=== PATIENT | female | born 1985 | race American Indian/Alaskan Native ===

== ENCOUNTER 2017-09-12 09:38 | Emergency (ER) | payer SELFPAY ==
[2017-09-12 10:46] LABS: Basophils % (Auto) 0.4 % (0.0-1.8); Eosinophils # (Auto) 0.5 K/mm3 (0.0-0.4); Eosinophils % (Auto) 5.1 % (0.0-4.3); Hematocrit 37.4 % (30.3-42.9); Lymphocytes # (Auto) 2.5 K/mm3 (1.2-5.4); Lymphocytes % (Auto) 24.2 % (13.4-35.0); Mean Corpuscular HGB Conc 32 % (30-34); Monocytes # (Auto) 0.7 K/mm3 (0.0-0.8); Platelet Count 246 K/mm3 (140-440); Red Blood Count 5.41 M/mm3 (3.65-5.03); Red Cell Distribution Width 16.6 % (13.2-15.2)
[2017-09-12 10:48] LABS: Mean Corpuscular Hemoglobin 22 pg (28-32); Mean Corpuscular Volume 69 fl (79-97)
[2017-09-12 10:54] LABS: Bilirubin,Urine NEG (Negative); Blood,Urine NEG (Negative); Color,Urine Straw (Yellow); Protein,Urine <15 mg/dL mg/dL (Negative); Urobilinogen,Urine < 2.0 mg/dL (<2.0)
[2017-09-12 10:56] LABS: Alanine Aminotransferase 11 units/L (7-56); BUN/Creatinine Ratio 10; Blood Urea Nitrogen 7 mg/dL (7-17); Calcium 9.1 mg/dL (8.4-10.2); Hemolysis Index 1; Lipase 25 units/L (13-60)
--- NOTE | 2017-09-12 11:12 | Emergency Department Report ---
ED Abdominal Pain HPI - General Chief Complaint: Abdominal Pain Stated Complaint: ABD PAIN/2MOS PREG. Time Seen by Provider: 09/12/17 10:35 Source: patient Mode of arrival: Ambulatory Limitations: No Limitations - History of Present Illness Initial Comments: Patient is a 32-year-old female presents to emergency room with nausea vomiting and diarrhea and abdominal pain 2 days. Patient states she is 2 months . Patient has not seen an [facility] as of yet. Patient states the vomiting is better now. Patient denies fever or chills. Patient denies shortness of breath and chest pain. He states he is taking a vitamin. Patient states she will eat pretty well at times. Patient states she normally has minimal nausea due to MD Complaint: abdominal pain -: Sudden, days(s) Location: LLQ Radiation: none Migration to: no migration Severity: severe Severity scale (0 -10): 7 Quality: cramping Consistency: intermittent Improves With: rest Worsens With: eating, movement Context: other () Associated Symptoms: nausea, vomiting, diarrhea - Related Data LMP (females 10-50): (2 months) Previous Rx's Medication Instructions Recorded Last Taken Type Ondansetron [Zofran Odt] 4 mg PO Q8HR PRN #20 tab.rapdis 09/12/17 Unknown Rx Allergies Allergy/AdvReac Type Severity Reaction Status Date / Time No Known Allergies Allergy Unverified 09/12/17 10:15 ED Review of Systems ROS: Stated complaint: ABD PAIN/2MOS PREG. Other details as noted in HPI Comment: All other systems reviewed and negative Constitutional: denies: chills, fever Eyes: denies: eye pain, eye discharge, vision change ENT: denies: ear pain, throat pain Respiratory: denies: cough, shortness of breath, wheezing Cardiovascular: denies: chest pain, palpitations Endocrine: no symptoms reported Gastrointestinal: abdominal pain, nausea, vomiting, diarrhea Genitourinary: denies: urgency, dysuria, discharge Musculoskeletal: denies: back pain, joint swelling, arthralgia Skin: denies: rash, lesions Neurological: denies: headache, weakness, paresthesias Psychiatric: denies: anxiety, depression Hematological/Lymphatic: denies: easy bleeding, easy bruising ED Past Medical Hx - Past Medical History Previous Medical History?: No - Surgical History Past Surgical History?: No - Family History Family history: no significant - Social History Smoking Status: Never Smoker Substance Use Type: None - Medications Home Medications: Home Medications Medication Instructions Recorded Confirmed Last Taken Type Ondansetron [Zofran Odt] 4 mg PO Q8HR PRN #20 tab.rapdis 09/12/17 Unknown Rx ED Physical Exam - General Limitations: No Limitations General appearance: alert, in no apparent distress - Head Head exam: Present: atraumatic, normocephalic - Eye Eye exam: Present: normal appearance - ENT ENT exam: Present: mucous membranes moist - Neck Neck exam: Present: normal inspection - Respiratory Respiratory exam: Present: normal lung sounds bilaterally. Absent: respiratory distress - Cardiovascular Cardiovascular Exam: Present: regular rate, normal rhythm. Absent: systolic murmur, diastolic murmur, rubs, gallop - GI/Abdominal GI/Abdominal exam: Present: soft, normal bowel sounds - Extremities Exam Extremities exam: Present: normal inspection - Back Exam Back exam: Present: normal inspection - Neurological Exam Neurological exam: Present: alert, oriented X3 - Psychiatric Psychiatric exam: Present: normal affect, normal mood - Skin Skin exam: Present: warm, dry, intact, normal color. Absent: rash ED Course Vital Signs 09/12/17 09/12/17 09/12/17 10:16 11:04 13:04 Temperature 98.9 F 98.4 F Pulse Rate 79 76 Respiratory 18 18 16 Rate Blood Pressure 114/70 Blood Pressure 106/59 [Right] O2 Sat by Pulse 100 100 100 Oximetry ED Medical Decision Making - Lab Data Result diagrams: 09/12/17 10:23 09/12/17 10:23 - Radiology Data Radiology results: report reviewed interpreted by me: Findings on abdominal ultrasound. Stable OB ultrasound - Medical Decision Making Age is a 32-year-old female presents to the emergency room with abdominal pain and and nausea/vomiting/diarrhea. She is stable for discharge. Will instruct patient to follow up with [facility] as soon as possible. All tests reviewed with patient. - Differential Diagnosis hyperemesis, gastroenteritis, abdominal pain, Critical care attestation.: If time is entered above; I have spent that time in minutes in the direct care of this critically ill patient, excluding procedure time. ED Disposition Clinical Impression: Gastroenteritis, Abdominal pain, Nausea vomiting and diarrhea, Disposition: DC-01 TO HOME OR SELFCARE Is pt being admited?: No Does the pt Need Aspirin: No Condition: Stable Instructions: Morning Sickness (ED), (ED), Acute Nausea and Vomiting (ED), Abdominal Pain (ED) Additional Instructions: Patient to follow up with primary care in 3-5 days. Patient to see OB in 3-5 days. Patient to return to your condition worsens. Patient to take Tylenol when necessary for pain. Patient increase water. Patient to continue vitamin. Martinez to start with a clear liquid diet and advance as tolerated. Patient to rest. Patient take meds as directed. Prescriptions: Ondansetron [Zofran Odt] 4 mg PO Q8HR PRN #20 tab.rapdis PRN Reason: Nausea And Vomiting Referrals: PRIMARY CARE, [Primary Care Provider] - 3-5 Days Time of Disposition: 14:07
[2017-09-12 13:05] VITALS: BP 106/59
--- NOTE | 2017-09-12 13:33 | Ultrasound Report ---
ULTRASOUND ABDOMEN COMPLETE INDICATION: Abdominal pain. COMPARISON: None similar. FINDINGS: Abdominal sonography demonstrates normal hepatic contours without focal suspicious lesions or biliary dilatation. Slight hepatic coarsening not entirely excluded. No gallstones or pericholecystic fluid. Gallbladder wall thickness is 1 mm. Common bile duct is 2.6 mm. Homogenous spleen, approximately 8.2 cm in length. No ascites. Imaged pancreas grossly within normal limits. Unremarkable IVC. Nonaneurysmal abdominal aorta. No hydronephrosis with right kidney approximately 9.4 x 4.2 x 4.1 cm with cortical thickness of 1.6 cm while the left kidney is 10.4 x 3.8 x 3.9 cm with cortical thickness of 1.2 cm. CONCLUSION: No acute abdominal sonographic abnormality, as described. Thank you for the opportunity to participate in this patient's care.
--- NOTE | 2017-09-12 13:40 | Ultrasound Report ---
ULTRASOUND OB LESS THAN 14 WEEKS - TRANSABDOMINAL AND TRANSVAGINAL INDICATION: Abdominal pain. Serum beta-hCG value of 50,599 units. COMPARISON: None similar. FINDINGS: Transabdominal and transvaginal pelvic sonography performed in this patient with LMP of 07/21/2017 and estimated menstrual age of 7 weeks and 4 days. It demonstrates a retroflexed, gravid uterus estimated at 9.4 x 6.1 x 7 cm with a single, viable intrauterine gestation with heart rate of 112 beats per minute. Mean crown-rump length of 0.58 cm corresponds to 6 weeks and 3 days. A small subarachnoid hemorrhage possible. Cervix appears closed. No significant free fluid. Physiologic ovaries, 2.9 x 1.8 x 3.2 cm on the right and 2.8 x 2.2 x 4.4 cm on the left. An approximately 2 cm cyst on the left noted. CONCLUSION: 1. Single, live intrauterine gestation with an ultrasound estimated age of 6 weeks and 3 days and NILO of 05/05/2018. 2. Other findings, as above. Thank you for the opportunity to participate in this patient's care.
== END 2017-09-12 15:23 | disposition home or self-care (01) ==
LOC: ED 09:38
DX: O99.611 Diseases of the digestive system complicating pregnancy, first trimester (principal); K52.9 Noninfective gastroenteritis and colitis, unspecified; O21.8 Other vomiting complicating pregnancy; Z3A.08 8 weeks gestation of pregnancy
CPT/HCPCS: 36415; 76700; 76801; 76817; 80053; 81001; 83690; 84702; 85025; 99284

== ENCOUNTER 2019-09-07 23:40 | Emergency (ER) | payer SELFPAY ==
[2019-09-07 23:53] VITALS: BP 102/74
--- NOTE | 2019-09-08 00:51 | Emergency Department Report ---
Chief Complaint: Upper Respiratory Infection Stated Complaint: COUGH BODYACHES CHEST CONGESTION FEVER VOMITING Time Seen by Provider: 09/08/19 00:46 - HPI History of Present Illness: 34-year-old -[place] female presents to the emergency room complaining of 1 day history of productive cough with white mucus, chest congestion, chills body aches and subjective fever. Patient reports she is taken Mucinex at 9 PM. Patient has not taken anything for pain. Patient denies any past medical history currently takes any medications on a daily basis and has no known drug allergies - Exam Vital Signs: Vital Signs 09/07/19 23:52 Temperature 98.9 F Pulse Rate 95 H Respiratory 16 Rate Blood Pressure 102/74 [Right] O2 Sat by Pulse 100 Oximetry Physical Exam: Patient is alert and oriented x3 no acute distress. HEENT. Oral mucosa is moist nonerythematous no exudate appreciated. Tonsils are normal. Eyes EOMI, nose is patent Chest clear to auscultation bilateral no wheezing rhonchi rales. Cardiac regular rate and rhythm no murmurs appreciated Neuro ambulatory without difficulties MSE screening note: Focused history and physical exam performed. Due to findings the following was ordered: 34-year-old -[place] female presents to the emergency room complaining of 1 day history of productive cough with white mucus, chest congestion, chills body aches and subjective fever. Patient reports she is taken Mucinex at 9 PM. Patient has not taken anything for pain. Patient denies any past medical history currently takes any medications on a daily basis and has no known drug allergies Discussed with patient she can take [id number]-[id number] Claritin [id number] ibuprofen for pain management. Patient continue taking Mucinex increase her fluid intake advance her diet as tolerated and rest. ED Disposition for MSE Clinical Impression: Flu-like symptoms Disposition: Z MED SCREENING EXAM-LEFT Is pt being admited?: No Does the pt Need Aspirin: No Condition: Stable Instructions: Viral Syndrome (ED) Additional Instructions: Discussed with patient she can take [id number] Claritin [id number] ibuprofen for pain management. Patient continue taking Mucinex increase her fluid intake advance her diet as tolerated and rest. Referrals: PRIMARY CARE, [Primary Care Provider] - 3-5 Days Forms: Work/School Release Form(ED)
== END 2019-09-08 01:15 | disposition left against medical advice (07) ==
LOC: ED 23:40
DX: J11.1 Influenza due to unidentified influenza virus with other respiratory manifestations (principal)
CPT/HCPCS: 99282